=== PATIENT | female | born 1980 | race Caucasian/White ===

== ENCOUNTER 2017-11-25 10:01 | Inpatient (IN) ==
[2017-11-25] MEDS ORDERED: *HR* Promethazine 25 MG/ML VIAL IVP ONE (11:31)
[2017-11-25] MEDS ORDERED: Ketorolac 15 MG/ML VIAL IVP ONE (11:31)
[2017-11-25 11:33] LABS: Bilirubin,Urine Large (Negative); Blood,Urine Small (Negative); Clarity,Urine Turbid (Clear); Color,Urine Orange (Yellow); Glucose,Urine (UA) Normal (Normal); Ketones,Urine Trace mg/dL (Negative); Leukocyte Esterase,Urine Small (Negative); Nitrite,Urine Positive (Negative); Protein,Urine 30 mg/dL (Neg-Trace); Specific Gravity,Urine 1.024 (1.010-1.025); Urobilinogen,Urine Normal (Normal)
--- NOTE | 2017-11-25 11:34 | Emergency Department Note ---
Disposition Clinical Impression: Transaminitis Abdominal pain Qualifiers: Abdominal location: unspecified location Qualified Code(s): R10.9 - Unspecified abdominal pain Hepatitis C infection Qualifiers: Viral hepatitis chronicity: unspecified Hepatic coma status: without hepatic coma Qualified Code(s): B19.20 - Unspecified viral hepatitis C without hepatic coma Disposition: Admitted As Inpatient Condition: Fair Time of Disposition: 14:10 Abdominal Pain HPI - General Chief Complaint: ED Abdominal Pain Stated Complaint: "abd pain/swelling" Time Seen by Provider: 11/25/17 10:57 Source: patient, family Mode of arrival: ambulatory Limitations: no limitations Nursing Notes Reviewed: Yes Vital Signs Reviewed: Yes - History of Present Illness HPI Narrative: 37 year old female with a history of IV drug use in the past with hepatitis C presents for evaluation of abdominal pain and bloating. Patient states that her abdominal bloating started approximately 2 weeks ago. Notes lower abdominal tenderness over the past 2 days. Patient also had a fever 2 days ago. Pain is worse with movement. Patient denies any dysuria. No diarrhea or constipation. Patient reports some nausea and vomiting. Patient states even taking Tylenol to help with the pain. Patient reports her last mesh appears approximately 2 weeks ago. Denies possibility . Has a history of tubal ligation. Patient does state that she has had brown vaginal discharge earlier today. Pain Scale: 6 - Related Data Home Medications Medication Instructions Recorded Confirmed [place] Carbonate 600 mg PO BID 11/25/17 11/25/17 Allergies Allergy/AdvReac Type Severity Reaction Status Date / Time Penicillins Allergy Swelling Verified 09/17/17 07:56 of Lip/Tongue/Throat phenazopyridine Allergy Swelling Verified 09/17/17 07:56 of Lip/Tongue/Throat Sulfa (Sulfonamide Allergy Swelling Verified 09/17/17 07:56 Antibiotics) of Lip/Tongue/Throat All systems ED: reviewed and negative except as stated. 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 Psychiatric history: Reports: anxiety, bipolar, depression - Social History Smoking status: Current every day smoker Alcohol use: Reports: none Drug use: Reports: none, IV Drug Use Physical Exam - General Limitations: no limitations General appearance: alert, in no apparent distress - Head Head exam: atraumatic, normocephalic, normal inspection - Eye Eye exam: Present: normal appearance, PERRL, EOMI - ENT ENT exam: normal exam, mucous membranes moist - Neck Neck exam: Present: normal inspection, trachea midline - Chest Chest inspection: Present: normal inspection, symmetric chest wall rise - Respiratory Respiratory exam: Present: normal lung sounds bilaterally. Absent: respiratory distress - Cardiovascular Cardiovascular exam: Present: regular rate, normal rhythm. Absent: systolic murmur - Abdominal Exam Abdominal exam: Present: soft, tenderness. Absent: guarding, rebound - Extremities Exam Extremities exam: Present: normal inspection - Expanded Lower Extremity Exam Neurovascular/Tendon exam: Present: normal capillary refill - Back Exam Back exam: Present: normal inspection. Absent: CVA tenderness (R), CVA tenderness (L) - Neurological Exam Neurological exam: Present: alert, oriented X3, CN II-XII intact - Skin Skin exam: Present: warm, dry, intact, normal color Course Course Narrative: Patient seen and examined. Patient family the treatment without difficulty. Patient complaining of lower abdominal tenderness. Patient has been having a fever. No fever at triage. However the patient states she has been taking Tylenol. Patient will get basic labs symptomatically treatment with anti- inflammatories and antiemetics. Patient also get a pelvic. Disposition pending. - Reevaluation(s) Reevaluation #1: Patient is agreeable for a pelvic exam. If there is any significant tenderness additional testing would prompt an ultrasound. Time: 12:00 Reevaluation #2: Patient's repeat abdominal exam is unremarkable. Awaiting labs. Time: 13:15 Reevaluation #3: Patient does have abnormal labs consistent with hepatitis. Will order hepatitis panel and discussed the case with GI. Patient does not have a gallbladder Time: 13:35 Additional Reevaluation(s): Patient states that she would be willing to stay. 1522: Awaiting for the hospital. Page back. Patient remained stable in the ED. Patient will get vascular access team to help establish IV access. 1736: Patient's resting comfortably. Patient has hepatitis A and hepatitis C. Patient's resting comfortably. Tylenol level is not elevated. Patient likely has viral hepatitis causing her lab abnormalities. - Consultations Consultation #1: Discussed the case with GI who recommended admission for supportive care and further investigation. Time: 14:05 Vital Signs Temperature 98.0 F 11/25/17 10:24 Pulse Rate 88 11/25/17 10:24 Respiratory Rate 12 11/25/17 10:24 Blood Pressure 101/74 11/25/17 10:24 O2 Sat by Pulse Oximetry 99 11/25/17 10:24 Temperature 98.0 F 11/25/17 11:26 Pulse Rate 88 11/25/17 11:26 Respiratory Rate 12 11/25/17 11:26 Blood Pressure 101/74 11/25/17 11:26 O2 Sat by Pulse Oximetry 99 11/25/17 11:26 Oxygen Delivery Oxygen Delivery Room Air Abdominal Pain - MDM Narrative Medical decision making narrative: Patient presents for concerns of abdominal pain. Patient does have known hepatitis C. Patient has her gallbladder removed. Patient had basic labs which reveal transaminitis as well as elevated total bili. Patient is were controlled. Initially the patient's workup centered around complaints with vaginal discharge and lower abdominal tenderness. Patient did have a pelvic exam which did not reveal any cervicitis. Patient was treated empirically initially. Patient's labs reviewed does show significantly elevated transaminitis and elevated bili. Patient's abdominal exam is soft no evidence of ascites. Did discuss the patient's with GI who recommended admission to the hospitalist service. Patient will get a hepatitis panel. Patient is agreeable with inpatient admission. Patient's abdominal exam shows no evidence of SBP. - Lab Data Lab results reviewed: Yes I reviewed the patient's lab results. Result diagrams: 11/25/17 12:12 11/25/17 12:12 Lab Results 11/25/17 11/25/17 11/25/17 Range/Units 11:00 11:00 11:04 WBC (4.3-11.1) K/mcL RBC (3.82-4.97) M/mcL Hgb (11.5-15.4) g/dL Hct (35.3-44.9) % MCV (83.0-100.0) fL MCH (28.0-33.3) pg MCHC (31.6-35.5) g/dL RDW (11.5-14.5) % Plt Count (140-400) K/mcL MPV (9.4-12.4) fL Immature Plt Fraction (1.1-6.1) % PT (9.4-12.1) Seconds INR Sodium (136-145) mEq/L Potassium (3.5-5.1) mEq/L Chloride (98-107) mEq/L Carbon Dioxide (23-29) mEq/L BUN (6-20) mg/dL Creatinine (0.60-1.20) mg/dL Est GFR ( Amer) (> 60) Est GFR (Non-Af Amer) (> 60) BUN/Creatinine Ratio (6-26) Glucose (70-105) mg/dL Calculated Osmolality (280-300) Calcium (8.6-10.3) mg/dL Total Bilirubin (0.3-1.0) mg/dL Direct Bilirubin (0.0-0.2) mg/dL Indirect Bilirubin (0.0-1.2) mg/dL AST (13-39) Units/L ALT (7-52) Units/L Alkaline Phosphatase (34-104) Units/L Serum Total Protein (6.4-8.9) g/dL Albumin (3.5-5.7) g/dL Globulin (2.4-3.5) g/dL Albumin/Globulin Ratio (1.1-2.2) Lipase (11-82) Units/L Ur Specimen Adequacy See below A Urine Color [place] A (Yellow) Urine Clarity Turbid A (Clear) Urine pH 6.0 (5.0-8.0) pH Units Ur Specific [place] 1.024 (1.010-1.025) Urine Protein 30 H (Neg-Trace) mg/dL Urine Glucose (UA) Normal (Normal) mg/dL Urine Ketones Trace H (Negative) mg/dL Urine Blood Small H (Negative) Urine Nitrite Positive A (Negative) Urine Bilirubin Large H (Negative) Urine Urobilinogen Normal (Normal) mg/dL Ur Leukocyte Esterase Small H (Negative) Urine Microscopic RBC 0-3 (0-3) per hpf Urine Microscopic WBC 0-3 (0-3) per hpf Ur Squamous Epith Cells Many H (None-Few) per lpf Urine Bacteria Many H (None-Few) per hpf Urine Test Negative (Negative) Urine Opiates Screen Negative (Choete=514) ng/mL Acetaminophen (10-20) mcg/mL Ur Barbiturates Screen Negative (Cpzxzv=336) ng/mL Ur Phencyclidine Scrn Negative (Cutoff=25) ng/mL Ur Amphetamines Screen Negative (Vvhjer=1872) ng/mL U Benzodiazepines Scrn Negative (Xbvkfs=733) ng/mL Urine Cocaine Screen Negative (Cutoff= 300) ng/mL U Marijuana (THC) Screen Negative (Cutoff = 50) ng/mL Ur Drug Screen Interp See Below [place] species DNA (Not Detect) Chlam trachomat DNA PCR (Not Detect) Gardnerella DNA Probe (Not Detect) Hepatitis A IgM Ab (Nonreactive) Hep Bs Antigen (Nonreactive) Hep B Core IgM Ab (Nonreactive) Hepatitis C Ab Screen (Nonreactive) N.gonorrhoeae DNA (PCR) (Not Detect) Trichomonas DNA Probe (Not Detect) 11/25/17 11/25/17 11/25/17 Range/Units 12:12 12:12 12:17 WBC 6.2 (4.3-11.1) K/mcL RBC 6.05 H (3.82-4.97) M/mcL Hgb 13.6 (11.5-15.4) g/dL Hct 42.2 (35.3-44.9) % MCV 69.8 L (83.0-100.0) fL MCH 22.5 L (28.0-33.3) pg MCHC 32.2 (31.6-35.5) g/dL RDW 16.7 H (11.5-14.5) % Plt Count 240 (140-400) K/mcL MPV 11.6 (9.4-12.4) fL Immature Plt Fraction 9.8 H (1.1-6.1) % PT (9.4-12.1) Seconds INR Sodium 131 L (136-145) mEq/L Potassium 4.1 (3.5-5.1) mEq/L Chloride 99 (98-107) mEq/L Carbon Dioxide 24 (23-29) mEq/L BUN 6 (6-20) mg/dL Creatinine 0.71 (0.60-1.20) mg/dL Est GFR ( Amer) > 60 (> 60) Est GFR (Non-Af Amer) > 60 (> 60) BUN/Creatinine Ratio 8 (6-26) Glucose 103 (70-105) mg/dL Calculated Osmolality 270 L (280-300) Calcium 8.3 L (8.6-10.3) mg/dL Total Bilirubin 5.8 H (0.3-1.0) mg/dL Direct Bilirubin 3.8 H (0.0-0.2) mg/dL Indirect Bilirubin 2.0 H (0.0-1.2) mg/dL AST 2243 H (13-39) Units/L ALT > 500 H (7-52) Units/L Alkaline Phosphatase 420 H (34-104) Units/L Serum Total Protein 6.2 L (6.4-8.9) g/dL Albumin 2.8 L (3.5-5.7) g/dL Globulin 3.4 (2.4-3.5) g/dL Albumin/Globulin Ratio 0.8 L (1.1-2.2) Lipase 47 (11-82) Units/L Ur Specimen Adequacy Urine Color (Yellow) Urine Clarity (Clear) Urine pH (5.0-8.0) pH Units Ur Specific [place] (1.010-1.025) Urine Protein (Neg-Trace) mg/dL Urine Glucose (UA) (Normal) mg/dL Urine Ketones (Negative) mg/dL Urine Blood (Negative) Urine Nitrite (Negative) Urine Bilirubin (Negative) Urine Urobilinogen (Normal) mg/dL Ur Leukocyte Esterase (Negative) Urine Microscopic RBC (0-3) per hpf Urine Microscopic WBC (0-3) per hpf Ur Squamous Epith Cells (None-Few) per lpf Urine Bacteria (None-Few) per hpf Urine Test (Negative) Urine Opiates Screen (Ehpfix=425) ng/mL Acetaminophen < 10 L (10-20) mcg/mL Ur Barbiturates Screen (Bxbnrx=869) ng/mL Ur Phencyclidine Scrn (Cutoff=25) ng/mL Ur Amphetamines Screen (Nrdfec=8067) ng/mL U Benzodiazepines Scrn (Lkntme=076) ng/mL Urine Cocaine Screen (Cutoff= 300) ng/mL U Marijuana (THC) Screen (Cutoff = 50) ng/mL Ur Drug Screen Interp [place] species DNA (Not Detect) Chlam trachomat DNA PCR NOT DETECTED (Not Detect) Gard[place]rella DNA Probe (Not Detect) Hepatitis A IgM Ab (Nonreactive) Hep Bs Antigen (Nonreactive) Hep B Core IgM Ab (Nonreactive) Hepatitis C Ab Screen (Nonreactive) N.gonorrhoeae DNA (PCR) NOT DETECTED (Not Detect) Trichomonas DNA Probe (Not Detect) 11/25/17 11/25/17 11/25/17 Range/Units 12:17 14:20 14:20 WBC (4.3-11.1) K/mcL RBC (3.82-4.97) M/mcL Hgb (11.5-15.4) g/dL Hct (35.3-44.9) % MCV (83.0-100.0) fL MCH (28.0-33.3) pg MCHC (31.6-35.5) g/dL RDW (11.5-14.5) % Plt Count (140-400) K/mcL MPV (9.4-12.4) fL Immature Plt Fraction (1.1-6.1) % PT 27.7 H (9.4-12.1) Seconds INR 2.5 Sodium (136-145) mEq/L Potassium (3.5-5.1) mEq/L Chloride (98-107) mEq/L Carbon Dioxide (23-29) mEq/L BUN (6-20) mg/dL Creatinine (0.60-1.20) mg/dL Est GFR ( Amer) (> 60) Est GFR (Non-Af Amer) (> 60) BUN/Creatinine Ratio (6-26) Glucose (70-105) mg/dL Calculated Osmolality (280-300) Calcium (8.6-10.3) mg/dL Total Bilirubin (0.3-1.0) mg/dL Direct Bilirubin (0.0-0.2) mg/dL Indirect Bilirubin (0.0-1.2) mg/dL AST (13-39) Units/L ALT (7-52) Units/L Alkaline Phosphatase (34-104) Units/L Serum Total Protein (6.4-8.9) g/dL Albumin (3.5-5.7) g/dL Globulin (2.4-3.5) g/dL Albumin/Globulin Ratio (1.1-2.2) Lipase (11-82) Units/L Ur Specimen Adequacy Urine Color (Yellow) Urine Clarity (Clear) Urine pH (5.0-8.0) pH Units Ur Specific [place] (1.010-1.025) Urine Protein (Neg-Trace) mg/dL Urine Glucose (UA) (Normal) mg/dL Urine Ketones (Negative) mg/dL Urine Blood (Negative) Urine Nitrite (Negative) Urine Bilirubin (Negative) Urine Urobilinogen (Normal) mg/dL Ur Leukocyte Esterase (Negative) Urine Microscopic RBC (0-3) per hpf Urine Microscopic WBC (0-3) per hpf Ur Squamous Epith Cells (None-Few) per lpf Urine Bacteria (None-Few) per hpf Urine Test (Negative) Urine Opiates Screen (Cityzb=446) ng/mL Acetaminophen (10-20) mcg/mL Ur Barbiturates Screen (Vyxmtk=684) ng/mL Ur Phencyclidine Scrn (Cutoff=25) ng/mL Ur Amphetamines Screen (Htgluh=8971) ng/mL U Benzodiazepines Scrn (Kplhly=295) ng/mL Urine Cocaine Screen (Cutoff= 300) ng/mL U Marijuana (THC) Screen (Cutoff = 50) ng/mL Ur Drug Screen Interp [place] species DNA Not Detected (Not Detect) Chlam trachomat DNA PCR (Not Detect) Gardnerella DNA Probe Not Detected (Not Detect) Hepatitis A IgM Ab Reactive H (Nonreactive) Hep Bs Antigen Nonreactive (Nonreactive) Hep B Core IgM Ab Nonreactive (Nonreactive) Hepatitis C Ab Screen Reactive H (Nonreactive) N.gonorrhoeae DNA (PCR) (Not Detect) Trichomonas DNA Probe Not Detected (Not Detect) S.B.A.R. - S.B.A.RMaya Situation: Demographics Background: Presenting Complaint Assessment: Vital Signs, Course and respsone to treatment, Patient/Family Expectation Recommendation: Barrier(s) to disposition, Recommendation based on pending studies, treatments, or consults S.B.A.R. Report Given to: Dr. Horn [email or web address] Repor Time: 15:32
[2017-11-25 11:36] LABS: Bacteria,Urine Many per hpf (None-Few); Squamous Epithelial Cell,Urine Many per lpf (None-Few); WBC,Urine 0-3 per hpf (0-3)
[2017-11-25 11:54] LABS: RBC,Urine 0-3 per hpf (0-3)
[2017-11-25] MEDS ORDERED: *HR* Promethazine 25 MG/ML VIAL IM ONE (11:59)
--- NOTE | 2017-11-25 12:21 | Emergency Department Note ---
Disposition Clinical Impression: Transaminitis, Abdominal pain, Hepatitis C infection Disposition: Admitted As Inpatient Referrals: NONE,PCP [Primary Care Provider] - Forms: ED Satisfaction Letter, Work/School Release General Adult HPI - General Chief complaint: ED Abdominal Pain Stated complaint: "abd pain/swelling" Time Seen by Provider: 11/25/17 10:57 Source: patient, family Mode of arrival: ambulatory Limitations: no limitations - History of Present Illness Pain Scale: 6 - Related Data Home Medications Medication Instructions Recorded Confirmed [place] Carbonate 600 mg PO BID 11/25/17 11/25/17 Allergies Allergy/AdvReac Type Severity Reaction Status Date / Time Penicillins Allergy Swelling Verified 09/17/17 07:56 of Lip/Tongue/Throat phenazopyridine Allergy Swelling Verified 09/17/17 07:56 of Lip/Tongue/Throat Sulfa (Sulfonamide Allergy Swelling Verified 09/17/17 07:56 Antibiotics) of Lip/Tongue/Throat Constitutional: Reports: fever Respiratory: Denies: cough, dyspnea, wheezes Gastrointestinal: Reports: abdominal pain, nausea, vomiting Past Medical History - Past Medical History Medical history: Reports: other Psychiatric history: Reports: anxiety, bipolar, depression 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 - Social History Smoking Status: Current every day smoker Smokeless Tobacco Status: No Alcohol use: Reports: none Drug use: Reports: none, IV Drug Use Physical Exam - General Limitations: no limitations General appearance: alert, in no apparent distress Course Vital Signs Temperature 98.0 F 11/25/17 10:24 Pulse Rate 88 11/25/17 10:24 Respiratory Rate 12 11/25/17 10:24 Blood Pressure 101/74 11/25/17 10:24 O2 Sat by Pulse Oximetry 99 11/25/17 10:24 Temperature 98.0 F 11/25/17 11:26 Pulse Rate 88 11/25/17 11:26 Respiratory Rate 12 11/25/17 11:26 Blood Pressure 101/74 11/25/17 11:26 O2 Sat by Pulse Oximetry 99 11/25/17 11:26 Oxygen Delivery Oxygen Delivery Room Air Medical Decision Making - Lab Data Result diagrams: 11/25/17 12:12 11/25/17 12:12 Lab Results 11/25/17 11/25/17 11/25/17 Range/Units 11:00 11:04 12:12 WBC 6.2 (4.3-11.1) K/mcL RBC 6.05 H (3.82-4.97) M/mcL Hgb 13.6 (11.5-15.4) g/dL Hct 42.2 (35.3-44.9) % MCV 69.8 L (83.0-100.0) fL MCH 22.5 L (28.0-33.3) pg MCHC 32.2 (31.6-35.5) g/dL RDW 16.7 H (11.5-14.5) % Plt Count 240 (140-400) K/mcL MPV 11.6 (9.4-12.4) fL Immature Plt Fraction 9.8 H (1.1-6.1) % PT (9.4-12.1) Seconds INR Sodium (136-145) mEq/L Potassium (3.5-5.1) mEq/L Chloride (98-107) mEq/L Carbon Dioxide (23-29) mEq/L BUN (6-20) mg/dL Creatinine (0.60-1.20) mg/dL Est GFR ( Amer) (> 60) Est GFR (Non-Af Amer) (> 60) BUN/Creatinine Ratio (6-26) Glucose (70-105) mg/dL Calculated Osmolality (280-300) Calcium (8.6-10.3) mg/dL Total Bilirubin (0.3-1.0) mg/dL Direct Bilirubin (0.0-0.2) mg/dL Indirect Bilirubin (0.0-1.2) mg/dL AST (13-39) Units/L ALT (7-52) Units/L Alkaline Phosphatase (34-104) Units/L Serum Total Protein (6.4-8.9) g/dL Albumin (3.5-5.7) g/dL Globulin (2.4-3.5) g/dL Albumin/Globulin Ratio (1.1-2.2) Lipase (11-82) Units/L Ur Specimen Adequacy See below A Urine Color [place] A (Yellow) Urine Clarity Turbid A (Clear) Urine pH 6.0 (5.0-8.0) pH Units Ur Specific [place] 1.024 (1.010-1.025) Urine Protein 30 H (Neg-Trace) mg/dL Urine Glucose (UA) Normal (Normal) mg/dL Urine Ketones Trace H (Negative) mg/dL Urine Blood Small H (Negative) Urine Nitrite Positive A (Negative) Urine Bilirubin Large H (Negative) Urine Urobilinogen Normal (Normal) mg/dL Ur Leukocyte Esterase Small H (Negative) Urine Microscopic RBC 0-3 (0-3) per hpf Urine Microscopic WBC 0-3 (0-3) per hpf Ur Squamous Epith Cells Many H (None-Few) per lpf Urine Bacteria Many H (None-Few) per hpf Urine Test Negative (Negative) [place] species DNA (Not Detect) Chlam trachomat DNA PCR (Not Detect) [place]rella DNA Probe (Not Detect) N.gonorrhoeae DNA (PCR) (Not Detect) Trichomonas DNA Probe (Not Detect) 11/25/17 11/25/17 11/25/17 Range/Units 12:12 12:17 12:17 WBC (4.3-11.1) K/mcL RBC (3.82-4.97) M/mcL Hgb (11.5-15.4) g/dL Hct (35.3-44.9) % MCV (83.0-100.0) fL MCH (28.0-33.3) pg MCHC (31.6-35.5) g/dL RDW (11.5-14.5) % Plt Count (140-400) K/mcL MPV (9.4-12.4) fL Immature Plt Fraction (1.1-6.1) % PT (9.4-12.1) Seconds INR Sodium 131 L (136-145) mEq/L Potassium 4.1 (3.5-5.1) mEq/L Chloride 99 (98-107) mEq/L Carbon Dioxide 24 (23-29) mEq/L BUN 6 (6-20) mg/dL Creatinine 0.71 (0.60-1.20) mg/dL Est GFR ( Amer) > 60 (> 60) Est GFR (Non-Af Amer) > 60 (> 60) BUN/Creatinine Ratio 8 (6-26) Glucose 103 (70-105) mg/dL Calculated Osmolality 270 L (280-300) Calcium 8.3 L (8.6-10.3) mg/dL Total Bilirubin 5.8 H (0.3-1.0) mg/dL Direct Bilirubin 3.8 H (0.0-0.2) mg/dL Indirect Bilirubin 2.0 H (0.0-1.2) mg/dL AST 2243 H (13-39) Units/L ALT > 500 H (7-52) Units/L Alkaline Phosphatase 420 H (34-104) Units/L Serum Total Protein 6.2 L (6.4-8.9) g/dL Albumin 2.8 L (3.5-5.7) g/dL Globulin 3.4 (2.4-3.5) g/dL Albumin/Globulin Ratio 0.8 L (1.1-2.2) Lipase 47 (11-82) Units/L Ur Specimen Adequacy Urine Color (Yellow) Urine Clarity (Clear) Urine pH (5.0-8.0) pH Units Ur Specific [place] (1.010-1.025) Urine Protein (Neg-Trace) mg/dL Urine Glucose (UA) (Normal) mg/dL Urine Ketones (Negative) mg/dL Urine Blood (Negative) Urine Nitrite (Negative) Urine Bilirubin (Negative) Urine Urobilinogen (Normal) mg/dL Ur Leukocyte Esterase (Negative) Urine Microscopic RBC (0-3) per hpf Urine Microscopic WBC (0-3) per hpf Ur Squamous Epith Cells (None-Few) per lpf Urine Bacteria (None-Few) per hpf Urine Test (Negative) [place] species DNA Not Detected (Not Detect) Chlam trachomat DNA PCR NOT DETECTED (Not Detect) Gardnerella DNA Probe Not Detected (Not Detect) N.gonorrhoeae DNA (PCR) NOT DETECTED (Not Detect) Trichomonas DNA Probe Not Detected (Not Detect) 11/25/17 Range/Units 14:20 WBC (4.3-11.1) K/mcL RBC (3.82-4.97) M/mcL Hgb (11.5-15.4) g/dL Hct (35.3-44.9) % MCV (83.0-100.0) fL MCH (28.0-33.3) pg MCHC (31.6-35.5) g/dL RDW (11.5-14.5) % Plt Count (140-400) K/mcL MPV (9.4-12.4) fL Immature Plt Fraction (1.1-6.1) % PT 27.7 H (9.4-12.1) Seconds INR 2.5 Sodium (136-145) mEq/L Potassium (3.5-5.1) mEq/L Chloride (98-107) mEq/L Carbon Dioxide (23-29) mEq/L BUN (6-20) mg/dL Creatinine (0.60-1.20) mg/dL Est GFR ( Amer) (> 60) Est GFR (Non-Af Amer) (> 60) BUN/Creatinine Ratio (6-26) Glucose (70-105) mg/dL Calculated Osmolality (280-300) Calcium (8.6-10.3) mg/dL Total Bilirubin (0.3-1.0) mg/dL Direct Bilirubin (0.0-0.2) mg/dL Indirect Bilirubin (0.0-1.2) mg/dL AST (13-39) Units/L ALT (7-52) Units/L Alkaline Phosphatase (34-104) Units/L Serum Total Protein (6.4-8.9) g/dL Albumin (3.5-5.7) g/dL Globulin (2.4-3.5) g/dL Albumin/Globulin Ratio (1.1-2.2) Lipase (11-82) Units/L Ur Specimen Adequacy Urine Color (Yellow) Urine Clarity (Clear) Urine pH (5.0-8.0) pH Units Ur Specific [place] (1.010-1.025) Urine Protein (Neg-Trace) mg/dL Urine Glucose (UA) (Normal) mg/dL Urine Ketones (Negative) mg/dL Urine Blood (Negative) Urine Nitrite (Negative) Urine Bilirubin (Negative) Urine Urobilinogen (Normal) mg/dL Ur Leukocyte Esterase (Negative) Urine Microscopic RBC (0-3) per hpf Urine Microscopic WBC (0-3) per hpf Ur Squamous Epith Cells (None-Few) per lpf Urine Bacteria (None-Few) per hpf Urine Test (Negative) Ana Rosa species DNA (Not Detect) Chlam trachomat DNA PCR (Not Detect) Gardnerella DNA Probe (Not Detect) N.gonorrhoeae DNA (PCR) (Not Detect) Trichomonas DNA Probe (Not Detect) Attestation Statement - Attestation Attestation: I examined this patient and my medical decision-making was reviewed with the Resident Physician. I agree with the documented findings, disposition and treatment plan as described except to the extent set forth below. Patient resents to the ED with a chief complaint of pelvic pain. She is also complaining of a brown vaginal discharge. Patient normally has normal monthly menses. She states last 2 periods of irregular. Patient is 12 years status post tubal ligation. On examination her abdomen is soft with some lower tenderness. She is not guarding. Plan. Pelvic exam basic labs. Patient with elevated LFTs. Elevated bilirubin. She has had a prior cholecystectomy. She is not having pain in that area. We did discuss with GI who requested admission. Patient accepted. Hospitalist later concerned about a possible Tylenol toxicity and requesting the patient be transferred. Patient reevaluated. Patient states the maximum number of Tylenol tablets she is taken and a day is 4. This is well short of her toxic dose which will be over 9000 mg a day. Patient admitted to medicine.
[2017-11-25 12:38] LABS: Mean Corpuscular HGB Conc 32.2 g/dL (31.6-35.5); Red Blood Count 6.05 M/mcL (3.82-4.97)
[2017-11-25 12:40] LABS: Hematocrit 42.2 % (35.3-44.9); Hemoglobin 13.6 g/dL (11.5-15.4); Immature Platelets 9.8 % (1.1-6.1); Mean Corpuscular Hemoglobin 22.5 pg (28.0-33.3); Mean Corpuscular Volume 69.8 fL (83.0-100.0); Mean Platelet Volume 11.6 fL (9.4-12.4); Red Cell Distribution Width 16.7 % (11.5-14.5)
[2017-11-25 13:12] LABS: Alanine Aminotransferase > 500 Units/L (7-52); Albumin 2.8 g/dL (3.5-5.7); Albumin/Globulin Ratio 0.8 (1.1-2.2); Alkaline Phosphatase 420 Units/L (34-104); BUN/Creatinine Ratio 8 (6-26); Bilirubin,Direct 3.8 mg/dL (0.0-0.2); Bilirubin,Total 5.8 mg/dL (0.3-1.0); Blood Urea Nitrogen 6 mg/dL (6-20); Calcium 8.3 mg/dL (8.6-10.3); Carbon Dioxide 24 mEq/L (23-29); Chloride 99 mEq/L (98-107); Globulin 3.4 g/dL (2.4-3.5); Glucose 103 mg/dL (70-105); Lipase 47 Units/L (11-82); Osmolality,Calculated 270 (280-300); Potassium 4.1 mEq/L (3.5-5.1); Sodium 131 mEq/L (136-145); Total Protein 6.2 g/dL (6.4-8.9); eGFR For Non-African Americans > 60 (> 60)
[2017-11-25] MEDS ORDERED: cefTRIAXone 250 MG VIAL IM ONE (13:14)
[2017-11-25 13:28] LABS: Candida DNA Not Detected (Not Detect); Gardnerella DNA Not Detected (Not Detect); Trichomonas DNA Not Detected (Not Detect)
[2017-11-25 13:52] LABS: Aspartate Amino Transferase 2243 Units/L (13-39)
[2017-11-25] MEDS ORDERED: 0.9 % Sodium Chloride 1,000 ML IVC ONE (14:12)
[2017-11-25 14:46] LABS: INR 2.5; Prothrombin Time 27.7 Seconds (9.4-12.1)
[2017-11-25 16:03] LABS: Hepatitis B Core IgM Nonreactive (Nonreactive); Hepatitis B Surface Antigen Nonreactive (Nonreactive)
[2017-11-25 16:16] LABS: Hepatitis A Antibody IgM Reactive (Nonreactive)
[2017-11-25 16:17] LABS: Hepatitis C Virus Antibody Reactive (Nonreactive)
[2017-11-25 16:33] LABS: Acetaminophen < 10 mcg/mL (10-20)
[2017-11-25] MEDS ORDERED: Isovue-370 500 ML INFUS..BTL IV ONE (16:50)
[2017-11-25] MEDS ORDERED: Naloxone 0.4 MG/ML INJ IVP PRN (16:54)
[2017-11-25 16:56] LABS: Amphetamine Screen,Urine Negative ng/mL (Cutoff=1000); Barbiturate Screen,Urine Negative ng/mL (Cutoff=200); Benzodiazepines Screen,Urine Negative ng/mL (Cutoff=200); Cannabinoid Screen,Urine Negative ng/mL (Cutoff = 50); Cocaine Screen,Urine Negative ng/mL (Cutoff= 300); Opiate Screen,Urine Negative ng/mL (Cutoff=300); Phencyclidine Screen,Urine Negative ng/mL (Cutoff=25)
--- NOTE | 2017-11-25 17:19 | Internal Med History&Physical ---
Date of Encounter: 11/25/17 Time of Encounter: 16:45 Internal Medicine - H&P: HPI Admitted From: Home Plans for Post Hospital Care: Transfer Other (transfer to [facility], accepted to [facility] with Hepatology) History of present illness: Ms. Hayden is a 37 year old female with pmhx bipolar depression, hep c, hx of lap lacy 09/2017 with reported cholelithiasis who presented from home with one week bloating, abd distension and abd pain. One week ago began with diffuse abd discomfort and some bloating, progressve over the weak with abd distension low abd pain, and subjective fevers with nausea and anorexia. Taking tylenol two tabs daily dose uk last dose this morning. noted brown vaginal discharge this morning. Awake and alert in bed, fatigued. She notes diffuse abd discomfort, no emesis, no diarrhea or constipation, no localized ruq pain. No chills, rigors, confusion , lethargy. no cough, cold, sob, orthopnea, pnd, le edema No cp, pressure, palpitations, presyncope or syncope. no hx heart failure + tobacco use, + ivda no injecting into abd or abscess there Denies skin color changes, rashes, itching Last menses 2 weeks ago, ED u preg neg, std check neg Allergic to pcns and describes anaphylactic rxc with edema and "throat closing" . Has not taken cephalosporins before to her knowledge. Discussed lab results, concern for liver failure, possibly related to hepatitis , need to rule out retained stone , monitor tylenol levels and eval for ascites. Recommend transfer to [facility] for hepatology availablility and pt agreeable [facility] transfer center contacted and pt accepted for by Dr Joseph. Past Med Surg Social Fam HX - Past Medical History Medical history: other Additional medical history: hep c, Psychiatric history: anxiety, bipolar, depression - Past Surgical History Surgical History: cholecystectomy Additional surgical history: tubal ligation, L ankle ORIF - Social History Smoking Status: Current every day smoker Smokeless Tobacco Status: No Alcohol use: none Drug use: none, IV Drug Use Internal Medicine - H&P: Meds Dudley Carbonate 600 mg PO BID 11/25/17 [History] 3 Allergy/AdvReac Type Severity Reaction Status Date / Time Penicillins Allergy Swelling Verified 09/17/17 07:56 of Lip/Tongue/Throat phenazopyridine Allergy Swelling Verified 09/17/17 07:56 of Lip/Tongue/Throat Sulfa (Sulfonamide Allergy Swelling Verified 09/17/17 07:56 Antibiotics) of Lip/Tongue/Throat All Systems PM: A 10-system review of systems was performed and is negative for pertinent findings except as documented above in the HPI. - Constitutional Vitals: Temp Pulse Resp BP Pulse Ox 98.0 F 88 12 101/74 99 11/25/17 11:26 11/25/17 11:11/25/17 11:11/25/17 11:11/25/17 11:26 Exam: General: awake, alert, appears stated age HEENT:EOM intact, pupils equal, round, moist mucus membranes, clear oropharynx , no scleral icterus Neck: supple, trachea midline Cardiovascular:regular rate and rhythm, normal S1 & S2, no rubs, murmurs or gallops appreciated. No JVD. radial pulses 2+, no pitting lower extremity edema Lungs:Normal breath sounds, no wheezes, or crackles. Normal respiratory effort on room air Abdomen:distended, taut but not rigid, diffusely mildly tender, she guards on palpation of the RUQ but then denies pain, + bowel sounds Extremities:No deformity, no edema or tenderness, no joint swelling or clubbing. Neurological: AAOx3, CN grossly intact, no focal deficits Skin:Normal color, no rash, no pallor, no jaundice Internal Med - H&P Results - Labs CBC & Chem 7: 11/25/17 12:12 11/25/17 12:12 - Assessment and plan (1) Abdominal pain Current Visit: Yes Status: Acute Assessment and plan: Most likely secondary to ascites, hepatitis as detailed below -on exam she has distended abd, not yet taut -stat ct a/p pending -empriric sbp treatment initiated--with her severe pcn allergy, and no confirmation of tolerance of cephalosporins in past- given risk v benefit- empiric cipro started -STD screen jerry, chlam, trich, gonorrhea all neg, u preg neg -keep npo at this time -hold on any IVFs pending ascites work up -she is hemodynamically stableand afebrile Qualifiers: Abdominal location: generalized Qualified Code(s): R10.84 - Generalized abdominal pain (2) Transaminitis Current Visit: Yes Status: Acute Assessment and plan: ast 2243, alt >500, alk phos 420 suspect at this time may be multifactorial--hx hep c, + hep A on hepatitis panel , elevated t bili direct predominance concerning for retained stone, recent tylenol use -given he associatedd lab abnormalities including an INR 2.5 she is at risk for liver failure and is being transferred to [facility], already accepted, with hepatology service there aware -tylenol level <10, check stat etoh level, uds neg, check ammonia level stat -last cmp at noon, will recheck level at 1800 pm, while awaiting transfer -ct a/p ordered stat and pending and report will be given to [facility] when results (3) Elevated INR Current Visit: Yes Status: Acute Assessment and plan: INR 2.5 in setting of transaminitis as above - high risk acute liver failure -only reported possible sign of bleeding is brown/dried blood like vaginal discharge -hgb wnl, plts wnl -in setting of liver coagulopathy she is at risk for bleeding and depending on etiology of liver disease also hypercoagulable state, at this time scds and hold any pharm vte ppx , defer to [facility] hepatology (4) Hypoalbuminemia Current Visit: Yes Status: Acute Assessment and plan: with albumin 2.8, total protein 6.2 related to liver disease process as above, may be complicated by poor intake with ivda (5) Total bilirubin, elevated Current Visit: Yes Status: Acute Assessment and plan: T bili 5.8, direct 3.8, there is concern for retained stone given recent lap lacy and cholelithiasis -stat ct a/p pending -she has no jaundice and no scleral icterus at time of this eval (6) Hepatitis A Current Visit: Yes Status: Acute Assessment and plan: hep A IgM +, no prior hx of + hep A, but on discussion with [facility], history hep B + She has known hep c chronic infection Qualifiers: Hepatic coma status: without hepatic coma Qualified Code(s): B15.9 - Hepatitis A without hepatic coma (7) Hepatitis C infection Current Visit: Yes Status: Acute Assessment and plan: chronic Qualifiers: Viral hepatitis chronicity: chronic Hepatic coma status: without hepatic coma Qualified Code(s): B18.2 - Chronic viral hepatitis C (8) Bipolar disorder Current Visit: Yes Status: Chronic Assessment and plan: previously on lithium, has not taken in one month Qualifiers: Active/Remission status: remission status unspecified Qualified Code(s): F31.9 - Bipolar disorder, unspecified - Time Spent With Patient Total time spent is greater than 50% in coordination of care (as documented) at patient's floor/unit and/or counseling patient: Greater than 35 minutes
--- NOTE | 2017-11-25 17:58 | Discharge Summary ---
- NOTES TO OUTPATIENT PROVIDER Notes to Outpatient Provider: transfer to [facility] on admission Orders not resulted at time of discharge: Pending orders 11/25/17 17:04 Blood Alcohol [Ethanol] Stat 11/25/17 17:39 Ammonia Stat 11/25/17 18:00 Acetaminophen Routine Comprehensive Metabolic Panel Routine 11/26/17 04:00 Activated Partial Thrombo Time [COAG] AM 0400 Complete Blood Count [HEME] AM 0400 Comprehensive Metabolic Panel AM 0400 Magnesium AM 0400 Phosphorous AM 0400 Prothrombin Time INR [COAG] AM 0400 11/27/17 18:00 PT/INR [Prothrombin Time INR] [COAG] ONCE Date of Encounter: 11/25/17 Time of Encounter: 16:45 - Discharge Diagnosis (1) Abdominal pain Priority: Primary Status: Acute Assessment and Plan: Most likely secondary to ascites, hepatitis as detailed below -on exam she has distended abd, not yet taut -stat ct a/p pending -empriric sbp treatment initiated--with her severe pcn allergy, and no confirmation of tolerance of cephalosporins in past- given risk v benefit- empiric cipro started -STD screen jerry, chlam, trich, gonorrhea all neg, u preg neg -keep npo at this time -hold on any IVFs pending ascites work up -she is hemodynamically stableand afebrile Qualifiers: Abdominal location: generalized Qualified Code(s): R10.84 - Generalized abdominal pain (2) Transaminitis Priority: Primary Status: Acute Assessment and Plan: ast 2243, alt >500, alk phos 420 suspect at this time may be multifactorial--hx hep c, + hep A on hepatitis panel , elevated t bili direct predominance concerning for retained stone, recent tylenol use -given he associatedd lab abnormalities including an INR 2.5 she is at risk for liver failure and is being transferred to [facility], already accepted, with hepatology service there aware -tylenol level <10, check stat etoh level, uds neg, check ammonia level stat -last cmp at noon, will recheck level at 1800 pm, while awaiting transfer -ct a/p ordered stat and pending and report will be given to [facility] when results (3) Elevated INR Priority: Secondary Status: Acute Assessment and Plan: INR 2.5 in setting of transaminitis as above - high risk acute liver failure -only reported possible sign of bleeding is brown/dried blood like vaginal discharge -hgb wnl, plts wnl -in setting of liver coagulopathy she is at risk for bleeding and depending on etiology of liver disease also hypercoagulable state, at this time scds and hold any pharm vte ppx , defer to [facility] hepatology (4) Hypoalbuminemia Priority: Secondary Status: Acute Assessment and Plan: with albumin 2.8, total protein 6.2 related to liver disease process as above, may be complicated by poor intake with ivda (5) Total bilirubin, elevated Priority: Secondary Status: Acute Assessment and Plan: T bili 5.8, direct 3.8, there is concern for retained stone given recent lap lacy and cholelithiasis -stat ct a/p pending -she has no jaundice and no scleral icterus at time of this eval (6) Hepatitis A Priority: Secondary Status: Acute Assessment and Plan: hep A IgM +, no prior hx of + hep A, but on discussion with [facility], history hep B + She has known hep c chronic infection Qualifiers: Hepatic coma status: without hepatic coma Qualified Code(s): B15.9 - Hepatitis A without hepatic coma (7) Hepatitis C infection Priority: Secondary Status: Chronic Assessment and Plan: chronic Qualifiers: Viral hepatitis chronicity: chronic Hepatic coma status: without hepatic coma Qualified Code(s): B18.2 - Chronic viral hepatitis C (8) Bipolar disorder Priority: Secondary Status: Chronic Assessment and Plan: previously on lithium, has not taken in one month Qualifiers: Active/Remission status: remission status unspecified Qualified Code(s): F31.9 - Bipolar disorder, unspecified Hospital course: Ms. Hayden is a 37 year old female who presented with findings concerning for early acute liver failure given lab work, in absence of hepatic encepalopathy with findings of hep c (known prior) and hep A. CT abdomen and pelvis resulted after above documentation and showed normal liver appearance, moderate ascites, mesenteric edema, and collateral vasculature and splenomegaly suggesting portal hypertension likely in association with chronic liver disease. Normal biliary ducts and pancreas. Splenomagaly up to 14 cm. Ammonia level 79. etoh, repeat cmp and tylenol levels pending at time of this documentation. On admission she was immediately transferred to [facility] with hepatology team there notified and pt accepted to their PCU immediately. Pt agreeable with plan. Discharge discussed with: patient, family - Time Spent with Patient Total time spent providing and/or coordinating discharge services: Greater than 30 minutes - Discharge Medications Allergies/Adverse Reactions: 3 Allergy/AdvReac Type Severity Reaction Status Date / Time Penicillins Allergy Swelling Verified 09/17/17 07:56 of Lip/Tongue/Throat phenazopyridine Allergy Swelling Verified 09/17/17 07:56 of Lip/Tongue/Throat Sulfa (Sulfonamide Allergy Swelling Verified 09/17/17 07:56 Antibiotics) of Lip/Tongue/Throat Date of admission: 11/25/17 15:57 Primary care physician: PCP NONE Discharging clinician: Yary Silva - Constitutional Vitals: Temp Pulse Resp BP Pulse Ox 98.0 F 88 18 97/66 99 11/25/17 11:26 11/25/17 11:26 11/25/17 17:43 11/25/17 17:43 11/25/17 11:26 Exam: General: awake, alert, appears stated age HEENT:EOM intact, pupils equal, round, moist mucus membranes, clear oropharynx , no scleral icterus Neck: supple, trachea midline Cardiovascular:regular rate and rhythm, normal S1 & S2, no rubs, murmurs or gallops appreciated. No JVD. radial pulses 2+, no pitting lower extremity edema Lungs:Normal breath sounds, no wheezes, or crackles. Normal respiratory effort on room air Abdomen:distended, taut but not rigid, diffusely mildly tender, she guards on palpation of the RUQ but then denies pain, + bowel sounds Extremities:No deformity, no edema or tenderness, no joint swelling or clubbing. Neurological: AAOx3, CN grossly intact, no focal deficits Skin:Normal color, no rash, no pallor, no jaundice - Patient Status Disposition: Transfer Other Condition: Fair Functional capacity at discharge: independent ambulation Overall status at discharge: patient is not back to baseline - Discharge Instructions Follow Up With: NONE,PCP [Primary Care Provider] - Additional Instructions: TRANSFER TO [facility] - Diet and Activity Diet: other (CURRENTLY NPO)
--- NOTE | 2017-11-25 18:04 | Physician Discharge Referral ---
ExtendedCare Referral Info Transfer To: [facility], Dr Joseph Institutional Level of Care: Skilled (transfer to [facility],accepted by Dr Joseph) - Diagnosis (1) Abdominal pain Priority: Primary Status: Acute (2) Transaminitis Priority: Primary Status: Acute (3) Elevated INR Priority: Secondary Status: Acute (4) Hypoalbuminemia Priority: Secondary Status: Acute (5) Total bilirubin, elevated Priority: Secondary Status: Acute (6) Hepatitis A Priority: Secondary Status: Acute (7) Hepatitis C infection Priority: Secondary Status: Chronic (8) Bipolar disorder Priority: Secondary Status: Chronic Prognosis: Fair Aware of Diagnosis: Patient Aware of Prognosis: Patient - Transfer Medications Allergies/Adverse Reactions: 3 Allergy/AdvReac Type Severity Reaction Status Date / Time Penicillins Allergy Swelling Verified 09/17/17 07:56 of Lip/Tongue/Throat phenazopyridine Allergy Swelling Verified 09/17/17 07:56 of Lip/Tongue/Throat Sulfa (Sulfonamide Allergy Swelling Verified 09/17/17 07:56 Antibiotics) of Lip/Tongue/Throat - Respiratory Orders None Smoking Cessation: Smoking cessation has been advised. For more information, call the [employer] Tobacco Quit Line at 1-202-JMRMNOW. - Advance Directives Code Status: Full Code - Mobility Orders Ambulate - Treatments List/Other: started empriically on cipro for sbp as severe pcn allergy and no prior hx of cephalosporin use CERTIFICATION: I certify that the transfer of the above named patient to an Extended Care Facility is necessary for the continuing treatment of the diagnosis listed. The above information is true and accurate reflection of patient's current condition. Confidential - Redisclosure prohibited without a patient's written consent.
[2017-11-25 18:43] LABS: Acetaminophen < 10 mcg/mL (10-20); Alanine Aminotransferase > 500 Units/L (7-52); Albumin 2.3 g/dL (3.5-5.7); Albumin/Globulin Ratio 0.8 (1.1-2.2); Alkaline Phosphatase 334 Units/L (34-104); Aspartate Amino Transferase 1760 Units/L (13-39); BUN/Creatinine Ratio 9 (6-26); Bilirubin,Total 5.1 mg/dL (0.3-1.0); Blood Urea Nitrogen 6 mg/dL (6-20); Calcium 7.4 mg/dL (8.6-10.3); Carbon Dioxide 26 mEq/L (23-29); Chloride 98 mEq/L (98-107); Ethanol < 10 mg/dL (Less than 10); Globulin 2.8 g/dL (2.4-3.5); Glucose 147 mg/dL (70-105); Osmolality,Calculated 272 (280-300); Potassium 3.2 mEq/L (3.5-5.1); Sodium 131 mEq/L (136-145); Total Protein 5.1 g/dL (6.4-8.9); eGFR For Non-African Americans > 60 (> 60)
[2017-11-25 19:34] VITALS: BP 93/60
== END 2017-11-25 21:49 | disposition critical access hospital (66) ==
LOC: EMEROOARM 10:01 → 3ANU 15:57
PROVIDERS: ADMIT Internal Medicine; ATTEND Internal Medicine